=== PATIENT | female | born 1965 | race Caucasian/White ===

== ENCOUNTER → 2018-12-03 | Day surgery (SDC) | payer BC ==
[~2018-12-03] MED LIST: HYDR50TA6 PO; IV RINGERS,LACTATED 1000ML 1,000 ML IV SCH; PROPOFOL 40 ML IV ONE; VALA500T5 PO
[2018-12-03 10:15] VITALS: BP 147/65
--- NOTE | 2018-12-04 17:08 | PATHOLOGY ---
[facility] Accession Number: [id number] . 01 Material submitted: . PART A: SMALL BOWEL BIOPSY PART B: GASTRIC ANTRUM PART C: DISTAL ESOPHAGUS BIOPSY PART D: SIGMOID POLYP . 01 Clinical history: . GERD . 02 Diagnosis: A. Small bowel biopsy: - No significant pathologic abnormalities. . B. Gastric biopsy, antrum: - Foveolar hyperplasia, congestion, and slight chronic inflammation consistent with reactive gastropathy, with minute focus of intestinal metaplasia. . C. Esophageal biopsy, distal esophagus: - Segments of gastric mucosa showing congestion and mild chronic inflammation with minute focus of intestinal metaplasia. . D. Colon biopsy, sigmoid polyp: - Consistent with prominent mucosal fold, with mucosal associated lymphoid aggregates. LBQ/12/04/2018 . 02 Comment: Sections of the small bowel biopsy reveal segments of duodenal and small intestine mucosa with focally prominent submucosal Suzanne's glands. Where best oriented, the mucosal villi show no sprue-like changes or significant inflammatory changes. Sections of the gastric biopsy reveal segments of gastric antral mucosa showing foveolar hyperplasia, congestion, and slight chronic inflammation with a minute focus of intestinal metaplasia. A properly controlled immunoperoxidase stain for Helicobacter is negative for Helicobacter organisms. The findings are consistent with a mild reactive gastropathy. Sections of the distal esophageal biopsy reveal segments of gastric mucosa showing congestion and mild chronic inflammation with a minute focus of intestinal metaplasia. There is no squamous esophageal mucosa. Sections of the sigmoid colon biopsy reveal a segment of colonic mucosa containing two mucosal associated lymphoid aggregates, consistent with prominent mucosal fold. There are no adenomatous changes or evidence of malignancy. (JPM/db; 12/04/2018) . Special stain performed: Immunoperoxidase stain for Helicobacter on B1 . 02 Electronically signed: . Mauricio Vaca MD, Pathologist NPI- [id number] . 01 Gross description: . A. Received in formalin labeled "Satish, Chuyita, small bowel BX," are 4 segments of cantu soft tissue measuring 1.7 x 0.5 x 0.2 cm in aggregate dimensions and ranging from 0.4 to 0.5 cm in maximum dimension. The specimen is submitted entirely in cassette A1. . B. Received in formalin labeled "Satish, Chuyita, gastric antrum BX," are 2 segments of cantu soft tissue measuring 0.7 x 0.3 x 0.2 cm in aggregate dimensions and ranging from 0.3 to 0.4 cm in maximum dimension. The specimen is submitted entirely in B1. . C. Received in formalin labeled "Satish, Chuyita, distal esophagus BX," are 2 segments of cantu soft tissue measuring 0.7 x 0.3 x 0.3 cm in aggregate dimensions and ranging from 0.3 to 0.4 cm in maximum dimension. The specimen is submitted entirely in C1. . D. Received in formalin labeled "Satish, Chuyita, sigmoid polyp," is a single segment of cantu soft tissue measuring 0.4 cm in maximum dimension. The specimen is entirely submitted in cassette D1. (TSD; 12/03/2018) TOB/TOB . 02 Pathologist provided ICD-10: K31.9, K29.50, K20.9, K21.9 . 02 CPT . 670568, 315172, 343253, [id number], [id number] Specimen Comment: A courtesy copy of this report has been sent to Specimen Comment: [phone], , . Specimen Comment: Report sent to and Specimen Comment: A duplicate report has been generated due to demographic updates. Performed at: 01 [facility] [address], [place], [place] [id number] MD Andres De Oliveira MD Phone: [phone] Performed at: 02 [facility] [address], [place] [id number] MD Mauricio Vaca MD Phone: [phone]
== END | disposition home or self-care (01) ==
LOC: ENDOS 08:07
PROVIDERS: ATTEND Internal Medicine Gastroenterology
DX: Z12.11 Encounter for screening for malignant neoplasm of colon (principal); K63.5 Polyp of colon; K64.0 First degree hemorrhoids; K21.0 Gastro-esophageal reflux disease with esophagitis; K44.9 Diaphragmatic hernia without obstruction or gangrene; K29.50 Unspecified chronic gastritis without bleeding; Z88.5 Allergy status to narcotic agent; F41.9 Anxiety disorder, unspecified; E78.00 Pure hypercholesterolemia, unspecified; Z85.828 Personal history of other malignant neoplasm of skin; Z72.89 Other problems related to lifestyle; Z87.891 Personal history of nicotine dependence; Z79.899 Other long term (current) drug therapy; Z90.49 Acquired absence of other specified parts of digestive tract; Z98.890 Other specified postprocedural states; Z80.0 Family history of malignant neoplasm of digestive organs
CPT/HCPCS: 43239; 45380; 88305; 88342; J2704